=== PATIENT | male | born 1965 | race Caucasian/White ===

== ENCOUNTER 2017-09-06 09:20 | Emergency (ER) | payer SELFPAY, OTHER ==
[2017-09-06 10:58] LABS: BASO % 0.3 % (0.0-1.0); EOS # 0.2 10^3/uL (0.0-0.50); EOS % 1.1 % (0.0-3.0); HEMATOCRIT 44.1 % (42.0-52.0); HEMOGLOBIN 14.8 g/dl (14.0-18.0); IMMATURE GRANULOCYTE # 0.1 10^3/uL (0-0); IMMATURE GRANULOCYTE % 0.4 % (0-0); LYMPH # 2.1 10^3/uL (1.5-4.5); LYMPH % 14.6 % (24.0-44.0); MEAN CORPUSCULAR HGB CONC 33.6 g/dl (32.0-36.5); MEAN CORPUSCULAR VOLUME 92.3 fl (80.0-96.0); MONO # 1.1 10^3/uL (0.0-0.8); MONO % 7.7 % (0.0-5.0); NEUTROPHILS # 10.7 10^3/uL (1.8-7.7); NEUTROPHILS % 75.9 % (36.0-66.0); PLATELET COUNT, AUTOMATED 169 10^3/uL (150-450); RED BLOOD COUNT 4.78 10^6/uL (4.30-6.10); RED CELL DISTRIBUTION WIDTH 13.4 % (11.5-14.5); WHITE BLOOD COUNT 14.1 10^3/uL (4.0-10.0)
[2017-09-06] MEDS: MORPHINE 4 MG/ML 1ML SYRINGE IV ×2 (10:58→15:01)
[2017-09-06] MEDS: PIPERACILLIN/TAZOBACTAM SOD 3.375 GM in APPROPRIATE DILUENT 1 EA IV (11:08)
[2017-09-06 11:22] LABS: ALBUMIN 3.6 GM/DL (3.2-5.2); ALBUMIN/GLOBULIN RATIO 1.03 (1.00-1.93); ALKALINE PHOSPHATASE 92 U/L (45-117); ALT/SGPT 19 U/L (12-78); ANION GAP 4 MEQ/L (8-16); AST/SGOT 15 U/L (7-37); BILIRUBIN,TOTAL 0.6 MG/DL (0.2-1.0); BLOOD UREA NITROGEN 13 MG/DL (7-18); CALCIUM LEVEL 8.8 MG/DL (8.5-10.1); CARBON DIOXIDE LEVEL 29 MEQ/L (21-32); CHLORIDE LEVEL 105 MEQ/L (98-107); CREATININE FOR GFR 1.02 MG/DL (0.70-1.30); GLOMERULAR FILTRATION RATE > 60.0 (>56); GLUCOSE, FASTING 100 MG/DL (70-100); POTASSIUM SERUM 4.5 MEQ/L (3.5-5.1); SODIUM LEVEL 138 MEQ/L (136-145); TOTAL PROTEIN 7.1 GM/DL (6.4-8.2)
[2017-09-06] MEDS ORDERED: ISOVUE-370 76% 100ML VIAL (Q9967) As Ordered (11:32)
[2017-09-06] MEDS: NS 1,000 ML IV (13:06)
== END 2017-09-06 16:54 | disposition home or self-care (01) ==
LOC: M ED 09:20
DX: K61.1 Rectal abscess (principal); F17.210 Nicotine dependence, cigarettes, uncomplicated
CPT/HCPCS: Q9967

== ENCOUNTER 2021-12-09 07:55 | Emergency (ER) | payer BC, SELFPAY ==
[~2021-12-09] VITALS: Ht 172.7 cm; Wt 74.1 kg
[~2021-12-09 07:55] MED LIST: ADVI200T PO; BACT800T5 PO; PERC5TAB12 PO
[2021-12-09] MEDS ORDERED: DOXY-443 PO (09:34)
[2021-12-09] MEDS ORDERED: DOXYCYCLINE HYCLATE 100MG TABLET PO ONE (09:40)
[2021-12-09 10:00] VITALS: BP 140/80
[2021-12-12] MEDS ORDERED: CLIN150C17 PO (08:21)
== END 2021-12-09 10:00 | disposition home or self-care (01) ==
LOC: M ED 07:55
DX: L02.215 Cutaneous abscess of perineum (principal); F17.200 Nicotine dependence, unspecified, uncomplicated; Z86.19 Personal history of other infectious and parasitic diseases

== ENCOUNTER → 2022-03-13 | Outpatient (REF) | payer BC ==
[~2022-03-13] MED LIST changes: +CLIN150C17 PO; +DOXY-443 PO
== END ==
LOC: M LAB REF 16:29
PROVIDERS: ATTEND Surgery
DX: L72.0 Epidermal cyst (principal)